=== PATIENT | male | born 1995 | race Caucasian/White ===

== ENCOUNTER 2017-08-15 17:46 | Emergency (ER) | payer OTHER ==
[2017-08-15] MEDS: LIDOCAINE W/EPINEPHRINE 1% 20ML VIAL SC (20:02)
== END 2017-08-15 21:09 | disposition home or self-care (01) ==
LOC: M ED 17:46
DX: S01.81XA Laceration without foreign body of other part of head, initial encounter (principal); W00.9XXA Unspecified fall due to ice and snow, initial encounter; Y92.9 Unspecified place or not applicable; Y93.9 Activity, unspecified; Y99.0 Civilian activity done for income or pay; J30.81 Allergic rhinitis due to animal (cat) (dog) hair and dander
CPT/HCPCS: 12011